=== PATIENT | male | born 1940 | race Caucasian/White ===

== ENCOUNTER 2016-03-21 16:50 | Inpatient (IN) | payer MEDICARE, OTHER ==
[~2016-03-21] VITALS: Ht 167.6 cm; Wt 53.2 kg
[2016-03-21] MEDS ORDERED: OPTIRAY 350 100 ML VIAL HMH IV ONE (16:51)
[2016-03-21] MEDS ORDERED: ED DILTIAZEM DRIP 125 ML IV ONE (18:18)
[2016-03-21] MEDS ORDERED: DILTIAZEM 50 MG/10 ML VIAL IV ONE (18:18)
[2016-03-21] MEDS ORDERED: SODIUM CHLORIDE 0.9% 1,000 ML ONE (18:19)
[2016-03-21] MEDS ORDERED: LORAZEPAM 2 MG/ML VIAL ONE (18:42)
[2016-03-21] MEDS ORDERED: DIPHENOXYLATE/ATROP TAB 2.5 MG TAB PO PRN (23:45)
[2016-03-22] VITALS (55 sets, daily range): BP systolic 94–140; RESP 14–29; TEMP 98.1–98.6; Ht 167.6 cm; Wt 53.2 kg
[2016-03-22] MEDS: LEVETIRACETAM IV SCH ×4 (01:23→18:13)
[2016-03-22] MEDS: SODIUM CHLORIDE 0.9% IV SCH ×4 (01:23→18:13)
[2016-03-22] MEDS ORDERED: DUONEB INH ONE (02:49)
[2016-03-22] MEDS: DUONEB INH SCH ×5 (02:52→22:40)
[2016-03-22] MEDS: CARDIZEM 1 MG/ML DRIP 125 ML IV SCH (04:11)
[2016-03-22] MEDS: PANTOPRAZOLE 40 MG TAB PO SCH (06:43)
[2016-03-22] MEDS ORDERED: ERGOCALCIFEROL 50,000 UNITS (1.25 MG) CAP PO SCH (09:00)
[2016-03-22] MEDS: LACTOBACILLUS ACIDOPH CAP PO SCH ×2 (09:12→22:33)
[2016-03-22] MEDS: ASPIRIN 81 MG CHEW TAB PO SCH (09:12)
[2016-03-22] MEDS: COLESTIPOL HCL 1 GM TAB PO SCH (09:12)
[2016-03-22] MEDS: LISINOPRIL 5 MG TAB PO SCH (09:13)
[2016-03-22] MEDS: Carvedilol 3.125 MG TAB PO SCH ×2 (09:13→22:33)
[2016-03-22] MEDS: FLUOXETINE 20 MG CAP PO SCH (09:13)
[2016-03-22] MEDS: MONTELUKAST 10 MG TAB PO SCH (22:33)
[2016-03-23] MEDS: LEVETIRACETAM IV SCH ×3 (00:05→12:36)
[2016-03-23] MEDS: SODIUM CHLORIDE 0.9% IV SCH ×3 (00:05→12:36)
[2016-03-23 03:14] VITALS: BP_SYST 138; RESP 18; TEMP 98.8
[2016-03-23] MEDS: PANTOPRAZOLE 40 MG TAB PO SCH (05:55)
[2016-03-23] MEDS ORDERED: SALINE FLUSH 10 ML FLUSH PRN (06:40)
[2016-03-23] MEDS: SODIUM CHLORIDE 0.9% FLUSH BAG 500 ML IV SCH (06:42)
[2016-03-23 07:27] VITALS: BP_SYST 122; RESP 20; TEMP 98.9
[2016-03-23] MEDS: DUONEB INH SCH ×4 (07:30→22:54)
[2016-03-23] MEDS: LACTOBACILLUS ACIDOPH CAP PO SCH ×2 (09:52→21:56)
[2016-03-23] MEDS: COLESTIPOL HCL 1 GM TAB PO SCH (09:52)
[2016-03-23] MEDS: FLUOXETINE 20 MG CAP PO SCH (09:52)
[2016-03-23] MEDS: LISINOPRIL 5 MG TAB PO SCH (09:52)
[2016-03-23] MEDS: ASPIRIN 81 MG CHEW TAB PO SCH (09:52)
[2016-03-23] MEDS: Carvedilol 3.125 MG TAB PO SCH ×2 (09:52→21:56)
[2016-03-23] MEDS: SALINE FLUSH 10 ML FLUSH SCH ×2 (09:53→21:56)
[2016-03-23 11:05] VITALS: BP_SYST 160; RESP 18; TEMP 97.5
[2016-03-23 15:07] VITALS: BP_SYST 162; RESP 18; TEMP 97.9
[2016-03-23 19:31] VITALS: BP_SYST 154; RESP 16; TEMP 98.2
[2016-03-23] MEDS: LEVETIRACETAM 250 MG TAB PO SCH (21:56)
[2016-03-23] MEDS: MONTELUKAST 10 MG TAB PO SCH (21:56)
[2016-03-23 23:26] VITALS: BP_SYST 137; RESP 18; TEMP 99
[2016-03-24] VITALS (26 sets, daily range): BP systolic 83–146; RESP 14–29; TEMP 98.2–99
[2016-03-24] MEDS: PANTOPRAZOLE 40 MG TAB PO SCH (05:53)
[2016-03-24] MEDS: DUONEB INH SCH ×4 (06:32→22:05)
[2016-03-24] MEDS: LACTOBACILLUS ACIDOPH CAP PO SCH ×2 (08:47→20:57)
[2016-03-24] MEDS: LEVETIRACETAM 250 MG TAB PO SCH (08:47)
[2016-03-24] MEDS: FLUOXETINE 20 MG CAP PO SCH (08:47)
[2016-03-24] MEDS: SALINE FLUSH 10 ML FLUSH SCH ×2 (08:48→20:56)
[2016-03-24] MEDS: Carvedilol 3.125 MG TAB PO SCH ×2 (08:48→20:57)
[2016-03-24] MEDS: ASPIRIN 81 MG CHEW TAB PO SCH (08:48)
[2016-03-24] MEDS: LISINOPRIL 5 MG TAB PO SCH (08:48)
[2016-03-24] MEDS: COLESTIPOL HCL 1 GM TAB PO SCH (08:48)
[2016-03-24] MEDS ORDERED: LEVETIRACETAM 250 MG TAB PO ONE (10:45)
[2016-03-24] MEDS: LEVETIRACETAM INJ 500 MG in SODIUM CHLORIDE 0.9% 100 ML IV SCH ×2 (16:58→22:23)
[2016-03-24] MEDS: SODIUM CHLORIDE IV SCH (19:22)
[2016-03-24] MEDS: FOSPHENYTOIN PE IV SCH (19:22)
[2016-03-24] MEDS: MONTELUKAST 10 MG TAB PO SCH (20:57)
[2016-03-24] MEDS ORDERED: LEVETIRACETAM 500 MG TAB PO SCH (21:00)
[2016-03-24] MEDS ORDERED: SUCCINYLCHOLINE 20 MG/ML VL ONE (23:10)
[2016-03-24] MEDS ORDERED: ETOMIDATE 2 MG/ML VIAL IV ONE (23:10)
[2016-03-24] MEDS ORDERED: LACT RINGERS 1,000 ML IV ONE (23:25)
[2016-03-24] MEDS ORDERED: PHARMACY TO DOSE VANCOMYCIN IV SCH (23:30)
[2016-03-24] MEDS ORDERED: PHARMACY TO DOSE ZOSYN IV SCH (23:30)
[2016-03-24] MEDS: NEB-BROVANA 15 MCG/2 ML INH SCH (23:35)
[2016-03-24] MEDS: NEB-BUDESONIDE 0.5 MG INH SCH (23:35)
[2016-03-25] VITALS (59 sets, daily range): BP systolic 62–131; RESP 12–22; TEMP 97.7–98
[2016-03-25] MEDS ORDERED: VANCOMYCIN 750 MG in SODIUM CHLORIDE 0.9% 250 ML IV SCH
[2016-03-25] MEDS: CHLORHEXIDINE 0.12% ORAL CARE FOR VENT PATIENTS 15 ML SWAB SCH ×3 (00:46→23:55)
[2016-03-25] MEDS: PIPERACIL/TAZO 3.375GM/50ML 50 ML IV SCH ×5 (00:46→23:54)
[2016-03-25] MEDS: SODIUM CHLORIDE IV SCH ×4 (02:32→19:52)
[2016-03-25] MEDS: FOSPHENYTOIN PE IV SCH ×4 (02:32→19:52)
[2016-03-25] MEDS: PROPOFOL 100 ML 100 ML IV PRN ×2 (02:33→16:56)
[2016-03-25] MEDS: NOREPINEPHRINE 16 MG in DEXTROSE 5% 234 ML IV SCH (02:34)
[2016-03-25] MEDS: LEVETIRACETAM INJ 500 MG in SODIUM CHLORIDE 0.9% 100 ML IV SCH ×4 (05:19→21:36)
[2016-03-25] MEDS: SODIUM CHLORIDE 0.9% FLUSH BAG 500 ML IV SCH (05:21)
[2016-03-25] MEDS: NEB-BUDESONIDE 0.5 MG INH SCH ×2 (07:26→18:27)
[2016-03-25] MEDS: DUONEB INH SCH ×4 (07:26→22:36)
[2016-03-25] MEDS: NEB-BROVANA 15 MCG/2 ML INH SCH ×2 (07:26→18:27)
[2016-03-25] MEDS: COLESTIPOL HCL 1 GM TAB PO SCH (07:42)
[2016-03-25] MEDS ORDERED: POTASSIUM PHOSPHATE 30 MMOL in SODIUM CHLORIDE 0.9% 250 ML IV ONE (07:45)
[2016-03-25] MEDS ORDERED: *PATIENT RECEIVING TUBE FEEDS, ASSESS/ADJUST MEDICATIONS GTUBE SCH (07:45)
[2016-03-25] MEDS: POTASSIUM CHLORIDE PREMIX 50 ML IV SCH ×2 (07:58→09:01)
[2016-03-25] MEDS: SALINE FLUSH 10 ML FLUSH SCH ×2 (08:42→19:53)
[2016-03-25] MEDS: MAGNESIUM SULF 1 GM/100 ML 100 ML IV SCH ×4 (08:46→14:15)
[2016-03-25] MEDS ORDERED: ATROP GTUBE PRN (09:30)
[2016-03-25] MEDS ORDERED: DIPHENOXYLATE GTUBE PRN (09:30)
[2016-03-25] MEDS: LANSOPRAZOLE 30 MG SOLUTAB GTUBE SCH (11:17)
[2016-03-25] MEDS: LACTOBACILLUS ACIDOPH CAP GTUBE SCH ×2 (11:17→19:53)
[2016-03-25] MEDS: VANCOMYCIN 500 MG in SODIUM CHLORIDE 0.9% 100 ML IV SCH ×2 (12:00→23:54)
[2016-03-25] MEDS: MONTELUKAST 10 MG TAB GTUBE SCH (19:53)
[2016-03-25] MEDS ORDERED: [UNRECOGNIZED DRUG - REMARK] XX SCH (23:20)
[2016-03-26] VITALS (49 sets, daily range): BP systolic 91–152; RESP 14–28; TEMP 97.7–98.4
[2016-03-26] MEDS: ACYCLOVIR 500 MG in SODIUM CHLORIDE 0.9% 100 ML IV SCH ×3 (00:27→16:13)
[2016-03-26] MEDS: FOSPHENYTOIN PE IV SCH ×4 (00:28→20:09)
[2016-03-26] MEDS: SODIUM CHLORIDE IV SCH ×4 (00:28→20:09)
[2016-03-26] MEDS: LEVETIRACETAM INJ 500 MG in SODIUM CHLORIDE 0.9% 100 ML IV SCH ×4 (04:26→23:24)
[2016-03-26] MEDS ORDERED: SODIUM CHLORIDE 0.9% 1,000 ML IV SCH (04:30)
[2016-03-26] MEDS: PROPOFOL 100 ML 100 ML IV PRN ×2 (04:55→10:57)
[2016-03-26] MEDS: SODIUM CHLORIDE 0.9% FLUSH BAG 500 ML IV SCH ×3 (04:56→23:25)
[2016-03-26] MEDS: PIPERACIL/TAZO 3.375GM/50ML 50 ML IV SCH ×4 (05:00→23:15)
[2016-03-26] MEDS: NEB-BROVANA 15 MCG/2 ML INH SCH ×2 (06:23→18:18)
[2016-03-26] MEDS: NEB-BUDESONIDE 0.5 MG INH SCH ×2 (06:23→18:18)
[2016-03-26] MEDS: DUONEB INH SCH ×4 (06:23→23:09)
[2016-03-26] MEDS: LANSOPRAZOLE 30 MG SOLUTAB GTUBE SCH (06:47)
[2016-03-26] MEDS ORDERED: POTASSIUM CHLORIDE PREMIX 50 ML IV ONE (07:10)
[2016-03-26] MEDS: SALINE FLUSH 10 ML FLUSH SCH ×2 (09:28→20:10)
[2016-03-26] MEDS: LACTOBACILLUS ACIDOPH CAP GTUBE SCH ×2 (09:30→20:09)
[2016-03-26] MEDS ORDERED: MISSING DOSE XX ONE ×2 (09:40→23:05)
[2016-03-26] MEDS: COLESTIPOL HCL 5 GM PACKET GTUBE SCH (10:48)
[2016-03-26] MEDS: VANCOMYCIN 500 MG in SODIUM CHLORIDE 0.9% 100 ML IV SCH ×2 (12:44→23:11)
[2016-03-26] MEDS: CHLORHEXIDINE 0.12% ORAL CARE FOR VENT PATIENTS 15 ML SWAB SCH ×2 (12:45→23:15)
[2016-03-26] MEDS: NEB-NACL 3% 4 ML NEBU INH SCH ×3 (14:09→23:09)
[2016-03-26] MEDS: MONTELUKAST 10 MG TAB GTUBE SCH (20:09)
[2016-03-27] VITALS (48 sets, daily range): BP systolic 97–153; RESP 14–33; TEMP 97.7–97.9
[2016-03-27] MEDS: SODIUM CHLORIDE IV SCH ×4 (02:41→20:28)
[2016-03-27] MEDS: FOSPHENYTOIN PE IV SCH ×4 (02:41→20:28)
[2016-03-27] MEDS: NEB-BUDESONIDE 0.5 MG INH SCH ×2 (05:15→18:18)
[2016-03-27] MEDS: DUONEB INH SCH ×4 (05:15→22:16)
[2016-03-27] MEDS: NEB-NACL 3% 4 ML NEBU INH SCH ×4 (05:15→22:16)
[2016-03-27] MEDS: NEB-BROVANA 15 MCG/2 ML INH SCH ×2 (05:16→18:18)
[2016-03-27] MEDS: LEVETIRACETAM INJ 500 MG in SODIUM CHLORIDE 0.9% 100 ML IV SCH (05:23)
[2016-03-27] MEDS: LANSOPRAZOLE 30 MG SOLUTAB GTUBE SCH (06:10)
[2016-03-27] MEDS: PIPERACIL/TAZO 3.375GM/50ML 50 ML IV SCH (06:10)
[2016-03-27] MEDS: SODIUM CHLORIDE 0.9% FLUSH BAG 500 ML IV SCH (06:12)
[2016-03-27] MEDS: COLESTIPOL HCL 5 GM PACKET GTUBE SCH (08:06)
[2016-03-27] MEDS: LACTOBACILLUS ACIDOPH CAP GTUBE SCH ×2 (08:06→20:32)
[2016-03-27] MEDS: SALINE FLUSH 10 ML FLUSH SCH ×2 (08:07→20:32)
[2016-03-27] MEDS: PROPOFOL 100 ML 100 ML IV PRN ×2 (09:51→16:37)
[2016-03-27] MEDS ORDERED: FERUMOXYTOL 510 MG in SODIUM CHLORIDE 0.9% 50 ML IV ONE (09:55)
[2016-03-27] MEDS ORDERED: CYANOCOBALAMIN 1000 MCG/ML VIAL IM ONE (09:55)
[2016-03-27] MEDS ORDERED: DEXAMETHASONE IV ONE (10:05)
[2016-03-27] MEDS ORDERED: SODIUM CHLORIDE 0.9% IV ONE (10:05)
[2016-03-27] MEDS ORDERED: METRONIDAZOLE IV SCH (10:45)
[2016-03-27] MEDS ORDERED: SODIUM CHLORIDE 0.9% IV SCH (10:45)
[2016-03-27] MEDS ORDERED: MISSING DOSE XX ONE (11:00)
[2016-03-27] MEDS: METRONIDAZOLE 250 MG 500 MG in SODIUM CHLORIDE 0.9% 100 ML IV SCH ×2 (11:06→16:37)
[2016-03-27] MEDS: NOREPINEPHRINE 16 MG in DEXTROSE 5% 234 ML IV SCH (11:07)
[2016-03-27] MEDS ORDERED: METRONIDAZOLE 250 MG 250 MG in SODIUM CHLORIDE 0.9% 50 ML IV SCH (12:00)
[2016-03-27] MEDS: VALPROATE IV SCH ×2 (12:11→18:08)
[2016-03-27] MEDS: SODIUM CHLORIDE 0.9% IV SCH ×2 (12:11→18:08)
[2016-03-27] MEDS ORDERED: CALCIUM GLUCONATE 2,000 MG in SODIUM CHLORIDE 0.9% 100 ML IV ONE (12:20)
[2016-03-27] MEDS: CHLORHEXIDINE 0.12% ORAL CARE FOR VENT PATIENTS 15 ML SWAB SCH (13:42)
[2016-03-27] MEDS: VANCOMYCIN 750 MG in SODIUM CHLORIDE 0.9% 250 ML IV SCH (14:39)
[2016-03-27] MEDS: DEXAMETHASONE 4 MG/ML VIAL IV SCH (16:36)
[2016-03-27] MEDS: CEFTRIAXONE 1 GM in SODIUM CHLORIDE 0.9% 50 ML IV SCH (20:29)
[2016-03-27] MEDS: MONTELUKAST 10 MG TAB GTUBE SCH (20:32)
[2016-03-28] VITALS (36 sets, daily range): BP systolic 109–140; RESP 20–32; TEMP 97.8–98
[2016-03-28] MEDS: DEXAMETHASONE 4 MG/ML VIAL IV SCH ×3 (00:46→16:23)
[2016-03-28] MEDS: CHLORHEXIDINE 0.12% ORAL CARE FOR VENT PATIENTS 15 ML SWAB SCH ×2 (00:47→11:54)
[2016-03-28] MEDS: METRONIDAZOLE 250 MG 500 MG in SODIUM CHLORIDE 0.9% 100 ML IV SCH ×3 (00:47→16:23)
[2016-03-28] MEDS: VALPROATE IV SCH ×4 (00:47→18:11)
[2016-03-28] MEDS: SODIUM CHLORIDE 0.9% IV SCH ×4 (00:47→18:11)
[2016-03-28] MEDS: SODIUM CHLORIDE IV SCH ×4 (01:00→20:36)
[2016-03-28] MEDS: FOSPHENYTOIN PE IV SCH ×4 (01:00→20:36)
[2016-03-28] MEDS: VANCOMYCIN 750 MG in SODIUM CHLORIDE 0.9% 250 ML IV SCH ×2 (01:02→15:11)
[2016-03-28] MEDS: PROPOFOL 100 ML 100 ML IV PRN ×3 (01:03→17:07)
[2016-03-28] MEDS: SODIUM CHLORIDE 0.9% FLUSH BAG 500 ML IV SCH ×2 (05:59→06:00)
[2016-03-28] MEDS: LANSOPRAZOLE 30 MG SOLUTAB GTUBE SCH (06:11)
[2016-03-28] MEDS: NEB-NACL 3% 4 ML NEBU INH SCH ×4 (06:34→22:04)
[2016-03-28] MEDS: NEB-BROVANA 15 MCG/2 ML INH SCH ×2 (06:34→18:28)
[2016-03-28] MEDS: DUONEB INH SCH ×4 (06:34→22:05)
[2016-03-28] MEDS: NEB-BUDESONIDE 0.5 MG INH SCH ×2 (06:34→18:28)
[2016-03-28] MEDS: VANCOMYCIN 500 MG in SODIUM CHLORIDE 0.9% 100 ML IV SCH (07:21)
[2016-03-28] MEDS: SALINE FLUSH 10 ML FLUSH SCH ×2 (07:54→20:36)
[2016-03-28] MEDS: CEFTRIAXONE 1 GM in SODIUM CHLORIDE 0.9% 50 ML IV SCH (08:21)
[2016-03-28] MEDS: COLESTIPOL HCL 5 GM PACKET GTUBE SCH ×2 (08:21→08:59)
[2016-03-28] MEDS: LACTOBACILLUS ACIDOPH CAP GTUBE SCH ×2 (08:21→20:37)
[2016-03-28] MEDS: MAGNESIUM SULF 1 GM/100 ML 100 ML IV SCH ×4 (09:52→14:05)
[2016-03-28] MEDS: MONTELUKAST 10 MG TAB GTUBE SCH (20:37)
[2016-03-28] MEDS: CEFTRIAXONE 2 GM in SODIUM CHLORIDE 0.9% 50 ML IV SCH (20:37)
[2016-03-29] VITALS (36 sets, daily range): BP systolic 107–162; RESP 23–39; TEMP 98.8–100
[2016-03-29] MEDS: SODIUM CHLORIDE 0.9% IV SCH ×5 (00:51→23:14)
[2016-03-29] MEDS: VALPROATE IV SCH ×5 (00:51→23:14)
[2016-03-29] MEDS: METRONIDAZOLE 250 MG 500 MG in SODIUM CHLORIDE 0.9% 100 ML IV SCH ×4 (00:52→23:14)
[2016-03-29] MEDS: DEXAMETHASONE 4 MG/ML VIAL IV SCH ×4 (00:54→23:17)
[2016-03-29] MEDS: FOSPHENYTOIN PE IV SCH ×4 (00:54→20:46)
[2016-03-29] MEDS: SODIUM CHLORIDE IV SCH ×4 (00:54→20:46)
[2016-03-29] MEDS: CHLORHEXIDINE 0.12% ORAL CARE FOR VENT PATIENTS 15 ML SWAB SCH ×3 (00:58→23:15)
[2016-03-29] MEDS: VANCOMYCIN 750 MG in SODIUM CHLORIDE 0.9% 250 ML IV SCH ×2 (01:03→13:29)
[2016-03-29] MEDS: NEB-BUDESONIDE 0.5 MG INH SCH ×2 (06:19→18:14)
[2016-03-29] MEDS: NEB-BROVANA 15 MCG/2 ML INH SCH ×2 (06:19→18:14)
[2016-03-29] MEDS: DUONEB INH SCH ×4 (06:19→22:04)
[2016-03-29] MEDS: NEB-NACL 3% 4 ML NEBU INH SCH ×4 (06:20→22:04)
[2016-03-29] MEDS: SODIUM CHLORIDE 0.9% FLUSH BAG 500 ML IV SCH ×2 (06:36→06:37)
[2016-03-29] MEDS: LANSOPRAZOLE 30 MG SOLUTAB GTUBE SCH (06:36)
[2016-03-29] MEDS: PROPOFOL 100 ML 100 ML IV PRN ×2 (06:44→11:48)
[2016-03-29] MEDS: SALINE FLUSH 10 ML FLUSH SCH ×2 (08:02→20:47)
[2016-03-29] MEDS: LACTOBACILLUS ACIDOPH CAP GTUBE SCH ×2 (08:03→20:47)
[2016-03-29] MEDS: COLESTIPOL HCL 5 GM PACKET GTUBE SCH (08:03)
[2016-03-29] MEDS: CEFTRIAXONE 2 GM in SODIUM CHLORIDE 0.9% 50 ML IV SCH ×2 (08:03→20:46)
[2016-03-29] MEDS: VANCOMYCIN SUSP 250 MG/5 ML UDC PO SCH ×2 (17:54→20:47)
[2016-03-29] MEDS: MONTELUKAST 10 MG TAB GTUBE SCH (20:47)
[2016-03-30] VITALS (36 sets, daily range): BP systolic 110–139; RESP 18–31; TEMP 98.6–99.5
[2016-03-30] MEDS: SODIUM CHLORIDE IV SCH ×4 (01:30→20:35)
[2016-03-30] MEDS: FOSPHENYTOIN PE IV SCH ×4 (01:30→20:35)
[2016-03-30] MEDS: VANCOMYCIN 1,250 MG in SODIUM CHLORIDE 0.9% 250 ML IV SCH (05:57)
[2016-03-30] MEDS: DUONEB INH SCH ×4 (06:10→22:51)
[2016-03-30] MEDS: NEB-NACL 3% 4 ML NEBU INH SCH ×4 (06:10→22:51)
[2016-03-30] MEDS: NEB-BROVANA 15 MCG/2 ML INH SCH ×2 (06:10→18:19)
[2016-03-30] MEDS: NEB-BUDESONIDE 0.5 MG INH SCH ×2 (06:10→18:19)
[2016-03-30] MEDS: SODIUM CHLORIDE 0.9% FLUSH BAG 500 ML IV SCH ×2 (06:41→06:42)
[2016-03-30] MEDS: SODIUM CHLORIDE 0.9% IV SCH ×3 (06:50→17:03)
[2016-03-30] MEDS: VALPROATE IV SCH ×3 (06:50→17:03)
[2016-03-30] MEDS: SALINE FLUSH 10 ML FLUSH SCH ×2 (07:26→20:35)
[2016-03-30] MEDS: DEXAMETHASONE 4 MG/ML VIAL IV SCH ×2 (07:26→17:02)
[2016-03-30] MEDS: METRONIDAZOLE 250 MG 500 MG in SODIUM CHLORIDE 0.9% 100 ML IV SCH ×2 (07:27→17:03)
[2016-03-30] MEDS: CEFTRIAXONE 2 GM in SODIUM CHLORIDE 0.9% 50 ML IV SCH ×2 (07:27→20:35)
[2016-03-30] MEDS: LACTOBACILLUS ACIDOPH CAP GTUBE SCH ×2 (07:27→20:35)
[2016-03-30] MEDS: VANCOMYCIN SUSP 250 MG/5 ML UDC PO SCH ×4 (07:27→20:35)
[2016-03-30] MEDS: MAGNESIUM SULF 1 GM/100 ML 100 ML IV SCH ×2 (07:46→08:51)
[2016-03-30] MEDS: PROPOFOL 100 ML 100 ML IV PRN (07:46)
[2016-03-30] MEDS ORDERED: ASPIRIN 81 MG CHEW TAB PO SCH (09:30)
[2016-03-30] MEDS: CHLORHEXIDINE 0.12% ORAL CARE FOR VENT PATIENTS 15 ML SWAB SCH (12:09)
[2016-03-30] MEDS: CYANOCOBALAMIN 1000 MCG/ML VIAL IM SCH (17:02)
[2016-03-30] MEDS: MONTELUKAST 10 MG TAB GTUBE SCH (20:35)
[2016-03-30] MEDS ORDERED: MISSING DOSE XX ONE (23:00)
[2016-03-31] VITALS (36 sets, daily range): BP systolic 113–158; RESP 21–37; TEMP 97.7–99.3
[2016-03-31] MEDS: DEXAMETHASONE 4 MG/ML VIAL IV SCH ×3 (00:12→16:45)
[2016-03-31] MEDS: CHLORHEXIDINE 0.12% ORAL CARE FOR VENT PATIENTS 15 ML SWAB SCH ×2 (00:13→11:37)
[2016-03-31] MEDS: VALPROATE IV SCH ×4 (00:13→18:12)
[2016-03-31] MEDS: SODIUM CHLORIDE 0.9% IV SCH ×4 (00:13→18:12)
[2016-03-31] MEDS: METRONIDAZOLE 250 MG 500 MG in SODIUM CHLORIDE 0.9% 100 ML IV SCH ×3 (00:13→16:44)
[2016-03-31] MEDS: CARDIZEM 1 MG/ML DRIP 125 ML IV SCH (00:14)
[2016-03-31] MEDS: FOSPHENYTOIN PE IV SCH ×4 (01:04→19:49)
[2016-03-31] MEDS: SODIUM CHLORIDE IV SCH ×4 (01:04→19:49)
[2016-03-31] MEDS: VANCOMYCIN 1,250 MG in SODIUM CHLORIDE 0.9% 250 ML IV SCH (05:28)
[2016-03-31] MEDS: SODIUM CHLORIDE 0.9% FLUSH BAG 500 ML IV SCH ×2 (05:30)
[2016-03-31] MEDS: NEB-BUDESONIDE 0.5 MG INH SCH ×2 (06:15→18:22)
[2016-03-31] MEDS: DUONEB INH SCH ×4 (06:15→22:02)
[2016-03-31] MEDS: NEB-NACL 3% 4 ML NEBU INH SCH ×4 (06:15→22:02)
[2016-03-31] MEDS: NEB-BROVANA 15 MCG/2 ML INH SCH ×2 (06:15→18:22)
[2016-03-31] MEDS: SALINE FLUSH 10 ML FLUSH SCH ×2 (07:36→19:49)
[2016-03-31] MEDS: CEFTRIAXONE 2 GM in SODIUM CHLORIDE 0.9% 50 ML IV SCH ×2 (08:52→19:50)
[2016-03-31] MEDS: CYANOCOBALAMIN 1000 MCG/ML VIAL IM SCH (08:53)
[2016-03-31] MEDS: LACTOBACILLUS ACIDOPH CAP GTUBE SCH ×2 (08:53→19:50)
[2016-03-31] MEDS: VANCOMYCIN SUSP 250 MG/5 ML UDC NG SCH ×4 (08:53→19:51)
[2016-03-31] MEDS: ASPIRIN 81 MG CHEW TAB NG SCH (08:53)
[2016-03-31] MEDS: FAMOTIDINE 20 MG INJ IV SCH ×2 (10:43→19:50)
[2016-03-31] MEDS ORDERED: MISSING DOSE XX ONE (12:15)
[2016-03-31] MEDS: ARTIFICIAL TEARS OINT EYE EACH SCH ×3 (13:46→19:51)
[2016-03-31] MEDS: MONTELUKAST 10 MG TAB GTUBE SCH (19:50)
[2016-04-01] VITALS (56 sets, daily range): BP systolic 96–148; RESP 18–31; TEMP 97.1–98.1
[2016-04-01] MEDS: SODIUM CHLORIDE 0.9% IV SCH ×4 (00:44→18:14)
[2016-04-01] MEDS: METRONIDAZOLE 250 MG 500 MG in SODIUM CHLORIDE 0.9% 100 ML IV SCH ×3 (00:44→15:56)
[2016-04-01] MEDS: DEXAMETHASONE 4 MG/ML VIAL IV SCH ×3 (00:44→15:55)
[2016-04-01] MEDS: CHLORHEXIDINE 0.12% ORAL CARE FOR VENT PATIENTS 15 ML SWAB SCH ×2 (00:44→12:33)
[2016-04-01] MEDS: VALPROATE IV SCH ×4 (00:44→18:14)
[2016-04-01] MEDS: FOSPHENYTOIN PE IV SCH ×4 (01:04→20:18)
[2016-04-01] MEDS: SODIUM CHLORIDE IV SCH ×4 (01:04→20:18)
[2016-04-01] MEDS: VANCOMYCIN 1,250 MG in SODIUM CHLORIDE 0.9% 250 ML IV SCH (05:15)
[2016-04-01] MEDS: SODIUM CHLORIDE 0.9% FLUSH BAG 500 ML IV SCH ×2 (05:16)
[2016-04-01] MEDS: NEB-BROVANA 15 MCG/2 ML INH SCH ×2 (06:22→18:54)
[2016-04-01] MEDS: NEB-BUDESONIDE 0.5 MG INH SCH ×2 (06:22→18:54)
[2016-04-01] MEDS: NEB-NACL 3% 4 ML NEBU INH SCH ×4 (06:22→22:14)
[2016-04-01] MEDS: DUONEB INH SCH ×4 (06:22→22:14)
[2016-04-01] MEDS: SALINE FLUSH 10 ML FLUSH SCH ×2 (07:37→20:18)
[2016-04-01] MEDS: ARTIFICIAL TEARS OINT EYE EACH SCH ×4 (08:21→20:19)
[2016-04-01] MEDS: LACTOBACILLUS ACIDOPH CAP GTUBE SCH ×2 (08:21→20:18)
[2016-04-01] MEDS: ASPIRIN 81 MG CHEW TAB NG SCH (08:21)
[2016-04-01] MEDS: VANCOMYCIN SUSP 250 MG/5 ML UDC NG SCH ×4 (08:21→20:18)
[2016-04-01] MEDS: CEFTRIAXONE 2 GM in SODIUM CHLORIDE 0.9% 50 ML IV SCH ×2 (08:22→20:18)
[2016-04-01] MEDS: CYANOCOBALAMIN 1000 MCG/ML VIAL IM SCH (08:23)
[2016-04-01] MEDS: MAGNESIUM SULF 1 GM/100 ML 100 ML IV SCH ×2 (08:23→09:39)
[2016-04-01] MEDS: FAMOTIDINE 20 MG INJ IV SCH ×2 (08:23→20:19)
[2016-04-01] MEDS: PROPOFOL 100 ML 100 ML IV PRN (16:05)
[2016-04-01] MEDS: MONTELUKAST 10 MG TAB GTUBE SCH (20:18)
[2016-04-02] VITALS (47 sets, daily range): BP systolic 95–149; RESP 17–33; TEMP 97.1–98.1
[2016-04-02] MEDS: METRONIDAZOLE 250 MG 500 MG in SODIUM CHLORIDE 0.9% 100 ML IV SCH ×3 (00:43→16:42)
[2016-04-02] MEDS: SODIUM CHLORIDE 0.9% IV SCH ×4 (00:43→18:44)
[2016-04-02] MEDS: DEXAMETHASONE 4 MG/ML VIAL IV SCH ×3 (00:43→21:32)
[2016-04-02] MEDS: VALPROATE IV SCH ×4 (00:43→18:44)
[2016-04-02] MEDS: CHLORHEXIDINE 0.12% ORAL CARE FOR VENT PATIENTS 15 ML SWAB SCH ×2 (00:44→12:25)
[2016-04-02] MEDS: SODIUM CHLORIDE IV SCH ×4 (01:38→20:35)
[2016-04-02] MEDS: FOSPHENYTOIN PE IV SCH ×4 (01:38→20:35)
[2016-04-02] MEDS: DUONEB INH SCH ×5 (02:50→23:12)
[2016-04-02] MEDS: VANCOMYCIN 1,250 MG in SODIUM CHLORIDE 0.9% 250 ML IV SCH (05:56)
[2016-04-02] MEDS: SODIUM CHLORIDE 0.9% FLUSH BAG 500 ML IV SCH ×3 (05:58)
[2016-04-02] MEDS: NEB-NACL 3% 4 ML NEBU INH SCH ×4 (06:27→23:12)
[2016-04-02] MEDS: NEB-BROVANA 15 MCG/2 ML INH SCH ×2 (06:28→19:25)
[2016-04-02] MEDS: NEB-BUDESONIDE 0.5 MG INH SCH ×2 (06:28→19:25)
[2016-04-02] MEDS: SALINE FLUSH 10 ML FLUSH SCH ×2 (08:02→20:36)
[2016-04-02] MEDS: ARTIFICIAL TEARS OINT EYE EACH SCH ×4 (08:02→21:32)
[2016-04-02] MEDS: FAMOTIDINE 20 MG INJ IV SCH ×2 (09:07→20:35)
[2016-04-02] MEDS: VANCOMYCIN SUSP 250 MG/5 ML UDC NG SCH ×4 (09:26→21:31)
[2016-04-02] MEDS: LACTOBACILLUS ACIDOPH CAP GTUBE SCH ×2 (09:26→21:31)
[2016-04-02] MEDS: ASPIRIN 81 MG CHEW TAB NG SCH (09:26)
[2016-04-02] MEDS: CYANOCOBALAMIN 1000 MCG/ML VIAL IM SCH (10:18)
[2016-04-02] MEDS: PROPOFOL 100 ML 100 ML IV PRN ×2 (13:15→20:36)
[2016-04-02] MEDS: MONTELUKAST 10 MG TAB GTUBE SCH (21:31)
[2016-04-03] VITALS (47 sets, daily range): BP systolic 90–128; RESP 17–30; TEMP 97.3–99.4
[2016-04-03] MEDS: METRONIDAZOLE 250 MG 500 MG in SODIUM CHLORIDE 0.9% 100 ML IV SCH ×3 (01:22→16:22)
[2016-04-03] MEDS: SODIUM CHLORIDE IV SCH ×4 (01:24→20:26)
[2016-04-03] MEDS: FOSPHENYTOIN PE IV SCH ×4 (01:24→20:26)
[2016-04-03] MEDS: VALPROATE IV SCH ×5 (01:24→23:11)
[2016-04-03] MEDS: SODIUM CHLORIDE 0.9% IV SCH ×5 (01:24→23:11)
[2016-04-03] MEDS: VANCOMYCIN 1,500 MG in SODIUM CHLORIDE 0.9% 250 ML IV SCH (05:00)
[2016-04-03] MEDS: SODIUM CHLORIDE 0.9% FLUSH BAG 500 ML IV SCH ×3 (05:48→06:13)
[2016-04-03] MEDS: NEB-BROVANA 15 MCG/2 ML INH SCH ×2 (06:48→16:57)
[2016-04-03] MEDS: NEB-NACL 3% 4 ML NEBU INH SCH ×4 (06:49→22:02)
[2016-04-03] MEDS: DUONEB INH SCH ×4 (06:49→22:02)
[2016-04-03] MEDS: NEB-BUDESONIDE 0.5 MG INH SCH ×2 (06:49→16:57)
[2016-04-03] MEDS: FAMOTIDINE 20 MG INJ IV SCH ×2 (08:20→20:26)
[2016-04-03] MEDS ORDERED: MISSING DOSE XX ONE (08:20)
[2016-04-03] MEDS: SALINE FLUSH 10 ML FLUSH SCH ×2 (08:20→20:27)
[2016-04-03] MEDS: ASPIRIN 81 MG CHEW TAB NG SCH (08:21)
[2016-04-03] MEDS: LACTOBACILLUS ACIDOPH CAP GTUBE SCH ×2 (08:21→20:26)
[2016-04-03] MEDS: DEXAMETHASONE 4 MG/ML VIAL IV SCH ×2 (08:21→20:26)
[2016-04-03] MEDS: ARTIFICIAL TEARS OINT EYE EACH SCH ×4 (08:21→20:27)
[2016-04-03] MEDS: VANCOMYCIN SUSP 250 MG/5 ML UDC NG SCH (08:24)
[2016-04-03] MEDS: VANCOMYCIN SUSP 250 MG/5 ML UDC GTUBE SCH ×4 (08:50→20:28)
[2016-04-03] MEDS: PROPOFOL 100 ML 100 ML IV PRN ×2 (09:50→21:27)
[2016-04-03] MEDS ORDERED: LACOSAMIDE 100 MG in SODIUM CHLORIDE 0.9% 50 ML IV SCH (11:00)
[2016-04-03] MEDS: LACOSAMIDE 100 MG in SODIUM CHLORIDE 0.9% 50 ML IV SCH ×2 (11:41→17:17)
[2016-04-03] MEDS: CHLORHEXIDINE 0.12% ORAL CARE FOR VENT PATIENTS 15 ML SWAB SCH ×2 (12:37)
[2016-04-03] MEDS: MONTELUKAST 10 MG TAB GTUBE SCH (20:26)
[2016-04-03] MEDS ORDERED: LORAZEPAM 2 MG/ML VIAL IV ONE (21:05)
[2016-04-04] VITALS (42 sets, daily range): BP systolic 87–141; RESP 14–33; TEMP 96.3–98.9
[2016-04-04] MEDS: LACOSAMIDE 100 MG in SODIUM CHLORIDE 0.9% 50 ML IV SCH ×4 (00:13→17:10)
[2016-04-04] MEDS: CHLORHEXIDINE 0.12% ORAL CARE FOR VENT PATIENTS 15 ML SWAB SCH ×2 (01:11→11:35)
[2016-04-04] MEDS: METRONIDAZOLE 250 MG 500 MG in SODIUM CHLORIDE 0.9% 100 ML IV SCH ×3 (01:11→15:57)
[2016-04-04] MEDS: SODIUM CHLORIDE IV SCH ×4 (02:38→20:11)
[2016-04-04] MEDS: FOSPHENYTOIN PE IV SCH ×4 (02:38→20:11)
[2016-04-04] MEDS: VANCOMYCIN 1,500 MG in SODIUM CHLORIDE 0.9% 250 ML IV SCH (04:43)
[2016-04-04] MEDS: SODIUM CHLORIDE 0.9% FLUSH BAG 500 ML IV SCH ×3 (06:00→06:05)
[2016-04-04] MEDS: PROPOFOL 100 ML 100 ML IV PRN ×2 (06:07→17:12)
[2016-04-04] MEDS: SODIUM CHLORIDE 0.9% IV SCH ×3 (06:57→18:12)
[2016-04-04] MEDS: VALPROATE IV SCH ×3 (06:57→18:12)
[2016-04-04] MEDS: NEB-BROVANA 15 MCG/2 ML INH SCH ×2 (07:01→18:15)
[2016-04-04] MEDS: NEB-BUDESONIDE 0.5 MG INH SCH ×2 (07:01→18:15)
[2016-04-04] MEDS: DUONEB INH SCH ×4 (07:01→23:34)
[2016-04-04] MEDS: NEB-NACL 3% 4 ML NEBU INH SCH ×4 (07:01→23:34)
[2016-04-04] MEDS: SALINE FLUSH 10 ML FLUSH SCH ×2 (08:02→20:11)
[2016-04-04] MEDS: ARTIFICIAL TEARS OINT EYE EACH SCH ×4 (08:03→20:12)
[2016-04-04] MEDS ORDERED: MISSING DOSE XX ONE ×3 (09:15→22:25)
[2016-04-04] MEDS: FAMOTIDINE 20 MG INJ IV SCH ×2 (09:21→20:11)
[2016-04-04] MEDS: ASPIRIN 81 MG CHEW TAB NG SCH (09:21)
[2016-04-04] MEDS: VANCOMYCIN SUSP 250 MG/5 ML UDC GTUBE SCH ×4 (09:21→20:12)
[2016-04-04] MEDS: DEXAMETHASONE 4 MG/ML VIAL IV SCH ×2 (09:22→20:13)
[2016-04-04] MEDS: LACTOBACILLUS ACIDOPH CAP GTUBE SCH ×2 (09:41→20:12)
[2016-04-04] MEDS: MONTELUKAST 10 MG TAB GTUBE SCH (20:12)
[2016-04-04] MEDS: LACOSAMIDE 50 MG TABLET NG SCH (20:13)
[2016-04-04] MEDS: MICONAZOLE 2% PWD TOPICAL SCH (20:14)
[2016-04-04] MEDS: CHOLESTYRAMINE LIGHT 4 GM PKT NG SCH ×2 (20:16→22:00)
[2016-04-05] VITALS (33 sets, daily range): BP systolic 97–153; RESP 17–31; TEMP 98.3–99.3
[2016-04-05] MEDS: SODIUM CHLORIDE 0.9% IV SCH ×4 (00:24→19:01)
[2016-04-05] MEDS: VALPROATE IV SCH ×4 (00:24→19:01)
[2016-04-05] MEDS: CHLORHEXIDINE 0.12% ORAL CARE FOR VENT PATIENTS 15 ML SWAB SCH ×2 (00:25→12:21)
[2016-04-05] MEDS: METRONIDAZOLE 250 MG 500 MG in SODIUM CHLORIDE 0.9% 100 ML IV SCH ×3 (00:25→16:55)
[2016-04-05] MEDS: FOSPHENYTOIN PE IV SCH ×4 (01:30→20:29)
[2016-04-05] MEDS: SODIUM CHLORIDE IV SCH ×4 (01:30→20:29)
[2016-04-05] MEDS: VANCOMYCIN 1,500 MG in SODIUM CHLORIDE 0.9% 250 ML IV SCH (05:50)
[2016-04-05] MEDS: SODIUM CHLORIDE 0.9% FLUSH BAG 500 ML IV SCH ×3 (05:51→05:52)
[2016-04-05] MEDS: NEB-BUDESONIDE 0.5 MG INH SCH ×2 (06:19→16:50)
[2016-04-05] MEDS: DUONEB INH SCH ×4 (06:19→22:35)
[2016-04-05] MEDS: NEB-NACL 3% 4 ML NEBU INH SCH ×4 (06:19→22:35)
[2016-04-05] MEDS: NEB-BROVANA 15 MCG/2 ML INH SCH ×2 (06:19→16:50)
[2016-04-05] MEDS: SALINE FLUSH 10 ML FLUSH SCH ×2 (09:15→20:30)
[2016-04-05] MEDS: FAMOTIDINE 20 MG INJ IV SCH ×2 (09:17→20:30)
[2016-04-05] MEDS: ASPIRIN 81 MG CHEW TAB NG SCH (09:19)
[2016-04-05] MEDS: ARTIFICIAL TEARS OINT EYE EACH SCH ×4 (09:19→20:31)
[2016-04-05] MEDS: LACTOBACILLUS ACIDOPH CAP GTUBE SCH ×2 (09:19→20:31)
[2016-04-05] MEDS: VANCOMYCIN SUSP 250 MG/5 ML UDC GTUBE SCH ×4 (09:19→20:31)
[2016-04-05] MEDS: LACOSAMIDE 50 MG TABLET NG SCH ×2 (09:20→20:31)
[2016-04-05] MEDS: MICONAZOLE 2% PWD TOPICAL SCH ×2 (09:20→20:32)
[2016-04-05] MEDS: DEXAMETHASONE 4 MG/ML VIAL IV SCH ×2 (09:21→20:31)
[2016-04-05] MEDS: CHOLESTYRAMINE LIGHT 4 GM PKT NG SCH ×2 (12:19→22:00)
[2016-04-05] MEDS: MONTELUKAST 10 MG TAB GTUBE SCH (20:31)
[2016-04-06] VITALS (28 sets, daily range): BP systolic 102–147; RESP 19–37; TEMP 97.3–98.7
[2016-04-06] MEDS: SODIUM CHLORIDE 0.9% IV SCH ×4 (00:59→18:39)
[2016-04-06] MEDS: VALPROATE IV SCH ×4 (00:59→18:39)
[2016-04-06] MEDS: METRONIDAZOLE 250 MG 500 MG in SODIUM CHLORIDE 0.9% 100 ML IV SCH ×3 (00:59→16:36)
[2016-04-06] MEDS: SODIUM CHLORIDE IV SCH ×4 (01:51→20:03)
[2016-04-06] MEDS: FOSPHENYTOIN PE IV SCH ×4 (01:51→20:03)
[2016-04-06] MEDS: VANCOMYCIN 1,500 MG in SODIUM CHLORIDE 0.9% 250 ML IV SCH (05:06)
[2016-04-06] MEDS: NEB-BROVANA 15 MCG/2 ML INH SCH ×2 (05:32→17:16)
[2016-04-06] MEDS: DUONEB INH SCH ×4 (05:32→22:29)
[2016-04-06] MEDS: NEB-NACL 3% 4 ML NEBU INH SCH ×4 (05:32→22:29)
[2016-04-06] MEDS: NEB-BUDESONIDE 0.5 MG INH SCH ×2 (05:32→17:15)
[2016-04-06] MEDS: SODIUM CHLORIDE 0.9% FLUSH BAG 500 ML IV SCH ×3 (06:00→06:49)
[2016-04-06] MEDS ORDERED: MISSING DOSE XX ONE (08:15)
[2016-04-06] MEDS: SALINE FLUSH 10 ML FLUSH SCH ×2 (08:36→20:05)
[2016-04-06] MEDS: FAMOTIDINE 20 MG INJ IV SCH ×2 (08:38→20:04)
[2016-04-06] MEDS: ARTIFICIAL TEARS OINT EYE EACH SCH ×4 (08:39→20:06)
[2016-04-06] MEDS: ASPIRIN 81 MG CHEW TAB NG SCH (08:40)
[2016-04-06] MEDS: VANCOMYCIN SUSP 250 MG/5 ML UDC GTUBE SCH ×4 (08:40→20:06)
[2016-04-06] MEDS: DEXAMETHASONE 4 MG/ML VIAL IV SCH (08:40)
[2016-04-06] MEDS: LACOSAMIDE 50 MG TABLET NG SCH ×2 (08:41→20:07)
[2016-04-06] MEDS: MICONAZOLE 2% PWD TOPICAL SCH ×2 (08:41→20:18)
[2016-04-06] MEDS: CHOLESTYRAMINE LIGHT 4 GM PKT NG SCH ×2 (08:41→20:19)
[2016-04-06] MEDS: LACTOBACILLUS ACIDOPH CAP GTUBE SCH ×2 (09:00→20:07)
[2016-04-06] MEDS: CHLORHEXIDINE 0.12% ORAL CARE FOR VENT PATIENTS 15 ML SWAB SCH ×2 (11:44)
[2016-04-06] MEDS: MONTELUKAST 10 MG TAB GTUBE SCH (20:07)
[2016-04-07] VITALS (25 sets, daily range): BP systolic 89–130; RESP 14–31; TEMP 97.2–98.2
[2016-04-07] MEDS: VALPROATE IV SCH ×4 (00:18→17:38)
[2016-04-07] MEDS: SODIUM CHLORIDE 0.9% IV SCH ×4 (00:18→17:38)
[2016-04-07] MEDS: METRONIDAZOLE 250 MG 500 MG in SODIUM CHLORIDE 0.9% 100 ML IV SCH ×2 (00:19→09:01)
[2016-04-07] MEDS: SODIUM CHLORIDE IV SCH ×4 (02:16→19:30)
[2016-04-07] MEDS: FOSPHENYTOIN PE IV SCH ×4 (02:16→19:30)
[2016-04-07] MEDS: DUONEB INH SCH ×4 (04:44→22:23)
[2016-04-07] MEDS: NEB-BROVANA 15 MCG/2 ML INH SCH ×2 (04:45→18:32)
[2016-04-07] MEDS: NEB-BUDESONIDE 0.5 MG INH SCH ×2 (04:45→18:32)
[2016-04-07] MEDS: NEB-NACL 3% 4 ML NEBU INH SCH ×4 (04:45→23:50)
[2016-04-07] MEDS: VANCOMYCIN 1,500 MG in SODIUM CHLORIDE 0.9% 250 ML IV SCH (05:31)
[2016-04-07] MEDS: SODIUM CHLORIDE 0.9% FLUSH BAG 500 ML IV SCH ×3 (05:34→05:51)
[2016-04-07] MEDS ORDERED: MISSING DOSE XX ONE ×3 (05:40→08:45)
[2016-04-07] MEDS: FAMOTIDINE 20 MG INJ IV SCH ×2 (08:58→20:00)
[2016-04-07] MEDS: SALINE FLUSH 10 ML FLUSH SCH ×2 (08:59→20:00)
[2016-04-07] MEDS: ARTIFICIAL TEARS OINT EYE EACH SCH ×4 (08:59→21:00)
[2016-04-07] MEDS: VANCOMYCIN SUSP 250 MG/5 ML UDC GTUBE SCH ×3 (09:00→12:20)
[2016-04-07] MEDS: MICONAZOLE 2% PWD TOPICAL SCH ×2 (09:02→21:00)
[2016-04-07] MEDS: MAGNESIUM SULF 1 GM/100 ML 100 ML IV SCH ×2 (10:48→12:02)
[2016-04-07] MEDS: SACCHA BOULARDII 250MG CAP PO SCH ×2 (12:02→21:00)
[2016-04-07] MEDS: ASPIRIN 81 MG CHEW TAB NG SCH (12:03)
[2016-04-07] MEDS: CHOLESTYRAMINE LIGHT 4 GM PKT NG SCH (12:05)
[2016-04-07] MEDS ORDERED: *TUBE FEEDS DISCONTINUED, ASSESS/ADJUST MEDICATIONS PO ONE (14:10)
[2016-04-07] MEDS ORDERED: ATROP PO PRN (14:25)
[2016-04-07] MEDS ORDERED: DIPHENOXYLATE PO PRN (14:25)
[2016-04-07] MEDS: VANCOMYCIN SUSP 250 MG/5 ML UDC PO SCH ×2 (16:46→21:00)
[2016-04-07] MEDS: LINEZOLID 600 MG/300 ML 300 ML IV SCH (20:00)
[2016-04-07] MEDS: LACOSAMIDE 200 MG TAB PO SCH (21:00)
[2016-04-07] MEDS: MONTELUKAST 10 MG TAB PO SCH (21:00)
[2016-04-07] MEDS: CHOLESTYRAMINE LIGHT 4 GM PKT PO SCH (22:00)
[2016-04-08] VITALS (24 sets, daily range): BP systolic 91–129; RESP 16–40; TEMP 97.1–98.3
[2016-04-08] MEDS ORDERED: MISSING DOSE XX ONE ×2 (00:20)
[2016-04-08] MEDS: VALPROATE IV SCH ×4 (00:51→16:18)
[2016-04-08] MEDS: SODIUM CHLORIDE 0.9% IV SCH ×4 (00:51→16:18)
[2016-04-08] MEDS: SODIUM CHLORIDE IV SCH ×4 (00:59→19:55)
[2016-04-08] MEDS: FOSPHENYTOIN PE IV SCH ×4 (00:59→19:55)
[2016-04-08] MEDS: SODIUM CHLORIDE 0.9% FLUSH BAG 500 ML IV SCH ×3 (05:32→05:51)
[2016-04-08] MEDS: NEB-BROVANA 15 MCG/2 ML INH SCH ×2 (07:08→17:18)
[2016-04-08] MEDS: NEB-NACL 3% 4 ML NEBU INH SCH ×4 (07:08→22:10)
[2016-04-08] MEDS: DUONEB INH SCH ×4 (07:08→22:10)
[2016-04-08] MEDS: NEB-BUDESONIDE 0.5 MG INH SCH ×2 (07:08→17:18)
[2016-04-08] MEDS: LINEZOLID 600 MG/300 ML 300 ML IV SCH ×2 (07:54→20:52)
[2016-04-08] MEDS: SALINE FLUSH 10 ML FLUSH SCH ×2 (07:55→19:58)
[2016-04-08] MEDS: VANCOMYCIN SUSP 250 MG/5 ML UDC PO SCH ×4 (07:56→21:38)
[2016-04-08] MEDS: CHOLESTYRAMINE LIGHT 4 GM PKT PO SCH ×2 (07:56→21:38)
[2016-04-08] MEDS: ASPIRIN 81 MG CHEW TAB PO SCH (07:57)
[2016-04-08] MEDS: SACCHA BOULARDII 250MG CAP PO SCH ×2 (07:59→20:35)
[2016-04-08] MEDS: LACOSAMIDE 200 MG TAB PO SCH ×2 (08:02→20:42)
[2016-04-08] MEDS: MICONAZOLE 2% PWD TOPICAL SCH ×2 (08:03→20:34)
[2016-04-08] MEDS: ARTIFICIAL TEARS OINT EYE EACH SCH ×4 (08:05→20:33)
[2016-04-08] MEDS: FAMOTIDINE 20 MG INJ IV SCH (08:14)
[2016-04-08] MEDS: DIVALPROEX SOD 125 MG CAP PO SCH ×2 (11:30→20:33)
[2016-04-08] MEDS: MONTELUKAST 10 MG TAB PO SCH (20:34)
[2016-04-08] MEDS: PHENYTOIN 100 MG CAP PO SCH (20:34)
[2016-04-09] VITALS (24 sets, daily range): BP systolic 90–130; RESP 14–31; TEMP 97.2–98.6
[2016-04-09] MEDS: VALPROATE IV SCH ×4 (00:57→18:09)
[2016-04-09] MEDS: SODIUM CHLORIDE 0.9% IV SCH ×4 (00:57→18:09)
[2016-04-09] MEDS: FOSPHENYTOIN PE IV SCH ×4 (02:41→20:15)
[2016-04-09] MEDS: SODIUM CHLORIDE IV SCH ×4 (02:41→20:15)
[2016-04-09] MEDS: NEB-NACL 3% 4 ML NEBU INH SCH ×4 (06:00→23:50)
[2016-04-09] MEDS: SODIUM CHLORIDE 0.9% FLUSH BAG 500 ML IV SCH ×3 (06:00→06:44)
[2016-04-09] MEDS: DUONEB INH SCH ×4 (06:01→23:50)
[2016-04-09] MEDS: NEB-BUDESONIDE 0.5 MG INH SCH ×2 (06:01→17:00)
[2016-04-09] MEDS: NEB-BROVANA 15 MCG/2 ML INH SCH ×2 (06:01→16:59)
[2016-04-09] MEDS: LINEZOLID 600 MG/300 ML 300 ML IV SCH ×2 (08:00→08:51)
[2016-04-09] MEDS ORDERED: MISSING DOSE XX ONE (08:05)
[2016-04-09] MEDS: ASPIRIN 81 MG CHEW TAB PO SCH (08:39)
[2016-04-09] MEDS: LACOSAMIDE 200 MG TAB PO SCH ×2 (08:40→20:16)
[2016-04-09] MEDS: DIVALPROEX SOD 125 MG CAP PO SCH ×2 (08:40→20:16)
[2016-04-09] MEDS: SACCHA BOULARDII 250MG CAP PO SCH ×2 (08:40→20:16)
[2016-04-09] MEDS: CHOLESTYRAMINE LIGHT 4 GM PKT PO SCH ×3 (08:42→23:19)
[2016-04-09] MEDS: VANCOMYCIN SUSP 250 MG/5 ML UDC PO SCH ×4 (08:42→20:16)
[2016-04-09] MEDS: SALINE FLUSH 10 ML FLUSH SCH ×2 (08:51→20:15)
[2016-04-09] MEDS: ARTIFICIAL TEARS OINT EYE EACH SCH (08:51)
[2016-04-09] MEDS: MICONAZOLE 2% PWD TOPICAL SCH ×2 (08:52→20:17)
[2016-04-09] MEDS: PHENYTOIN 100 MG CAP PO SCH (20:16)
[2016-04-09] MEDS: MONTELUKAST 10 MG TAB PO SCH (20:16)
[2016-04-10] VITALS (24 sets, daily range): BP systolic 101–133; RESP 18–34; TEMP 96.5–98.4
[2016-04-10] MEDS: SODIUM CHLORIDE 0.9% FLUSH BAG 500 ML IV SCH ×3 (06:00→06:24)
[2016-04-10] MEDS: NEB-NACL 3% 4 ML NEBU INH SCH ×3 (06:25→18:39)
[2016-04-10] MEDS: NEB-BUDESONIDE 0.5 MG INH SCH ×2 (06:25→18:39)
[2016-04-10] MEDS: DUONEB INH SCH ×3 (06:25→18:39)
[2016-04-10] MEDS: NEB-BROVANA 15 MCG/2 ML INH SCH ×2 (06:25→18:39)
[2016-04-10] MEDS: SALINE FLUSH 10 ML FLUSH SCH ×2 (08:55→20:15)
[2016-04-10] MEDS: VANCOMYCIN SUSP 250 MG/5 ML UDC PO SCH ×4 (08:56→20:44)
[2016-04-10] MEDS: ASPIRIN 81 MG CHEW TAB PO SCH (08:56)
[2016-04-10] MEDS: DIVALPROEX SOD 125 MG CAP PO SCH ×2 (08:57→20:44)
[2016-04-10] MEDS: LACOSAMIDE 200 MG TAB PO SCH ×2 (08:58→20:45)
[2016-04-10] MEDS: SACCHA BOULARDII 250MG CAP PO SCH ×2 (08:58→20:45)
[2016-04-10] MEDS: CHOLESTYRAMINE LIGHT 4 GM PKT PO SCH ×2 (08:59→20:45)
[2016-04-10] MEDS: MICONAZOLE 2% PWD TOPICAL SCH ×2 (08:59→20:45)
[2016-04-10] MEDS: MONTELUKAST 10 MG TAB PO SCH (20:45)
[2016-04-10] MEDS: PHENYTOIN 100 MG CAP PO SCH (20:45)
[2016-04-10] MEDS ORDERED: MISSING DOSE XX ONE (21:30)
[2016-04-11] VITALS: BP_SYST 123; RESP 24; TEMP 97.9
[2016-04-11] MEDS: NEB-NACL 3% 4 ML NEBU INH SCH ×5 (00:04→23:19)
[2016-04-11] MEDS: DUONEB INH SCH ×5 (00:04→23:19)
[2016-04-11] MEDS: NEB-BROVANA 15 MCG/2 ML INH SCH ×2 (05:12→19:02)
[2016-04-11] MEDS: NEB-BUDESONIDE 0.5 MG INH SCH ×2 (05:13→19:02)
[2016-04-11] MEDS: SODIUM CHLORIDE 0.9% FLUSH BAG 500 ML IV SCH ×3 (05:38)
[2016-04-11 08:39] VITALS: BP_SYST 120; RESP 24; TEMP 97.1
[2016-04-11] MEDS: ASPIRIN 81 MG CHEW TAB PO SCH (09:33)
[2016-04-11] MEDS: DIVALPROEX SOD 125 MG CAP PO SCH ×2 (09:33→20:54)
[2016-04-11] MEDS: SALINE FLUSH 10 ML FLUSH SCH ×2 (09:33→20:54)
[2016-04-11] MEDS: SACCHA BOULARDII 250MG CAP PO SCH ×2 (09:33→20:55)
[2016-04-11] MEDS: LACOSAMIDE 200 MG TAB PO SCH ×2 (09:33→20:55)
[2016-04-11] MEDS: MICONAZOLE 2% PWD TOPICAL SCH ×2 (09:36→20:55)
[2016-04-11] MEDS ORDERED: MISSING DOSE XX ONE (10:20)
[2016-04-11] MEDS: VANCOMYCIN SUSP 250 MG/5 ML UDC PO SCH ×4 (10:47→20:54)
[2016-04-11] MEDS: CHOLESTYRAMINE LIGHT 4 GM PKT PO SCH ×2 (10:47→20:55)
[2016-04-11 12:42] VITALS: BP_SYST 135; RESP 24; TEMP 97.5
[2016-04-11 15:05] VITALS: BP_SYST 135; RESP 24; TEMP 97.6
[2016-04-11 19:59] VITALS: BP_SYST 132; RESP 20; TEMP 97.3
[2016-04-11] MEDS: PHENYTOIN 100 MG CAP PO SCH (20:54)
[2016-04-11] MEDS: MONTELUKAST 10 MG TAB PO SCH (20:55)
[2016-04-11 23:16] VITALS: BP_SYST 138; RESP 18; TEMP 97.7
[2016-04-12] VITALS (45 sets, daily range): BP systolic 49–138; RESP 18–37; TEMP 97.3–98.2
[2016-04-12] MEDS: SODIUM CHLORIDE 0.9% FLUSH BAG 500 ML IV SCH ×3 (05:10)
[2016-04-12] MEDS: DUONEB INH SCH ×4 (06:17→22:24)
[2016-04-12] MEDS: NEB-NACL 3% 4 ML NEBU INH SCH ×4 (06:17→22:24)
[2016-04-12] MEDS: NEB-BROVANA 15 MCG/2 ML INH SCH ×2 (06:17→17:00)
[2016-04-12] MEDS: NEB-BUDESONIDE 0.5 MG INH SCH ×2 (06:17→17:00)
[2016-04-12] MEDS: SALINE FLUSH 10 ML FLUSH SCH ×2 (09:42→22:48)
[2016-04-12] MEDS: SACCHA BOULARDII 250MG CAP PO SCH ×2 (09:43→21:00)
[2016-04-12] MEDS: DIVALPROEX SOD 125 MG CAP PO SCH (09:43)
[2016-04-12] MEDS: VANCOMYCIN SUSP 250 MG/5 ML UDC PO SCH ×4 (09:43→21:00)
[2016-04-12] MEDS: ASPIRIN 81 MG CHEW TAB PO SCH (09:43)
[2016-04-12] MEDS: LACOSAMIDE 200 MG TAB PO SCH (09:43)
[2016-04-12] MEDS: CHOLESTYRAMINE LIGHT 4 GM PKT PO SCH ×2 (09:44→22:00)
[2016-04-12] MEDS: MICONAZOLE 2% PWD TOPICAL SCH ×2 (09:44→22:54)
[2016-04-12] MEDS ORDERED: ACETAMINOPHEN 325 MG TAB PO PRN (12:25)
[2016-04-12] MEDS ORDERED: SODIUM CHLORIDE 0.9% 500 ML IV ONE (13:20)
[2016-04-12] MEDS ORDERED: DEXTROSE 5% SALINE 0.9% 1,000 ML IV SCH (13:20)
[2016-04-12] MEDS ORDERED: DEXTROSE 50% SYRINGE 50 ML IV PRN (15:10)
[2016-04-12] MEDS ORDERED: GLUCAGON 1 MG VIAL IM PRN (15:10)
[2016-04-12] MEDS ORDERED: PHARMACY TO DOSE ZOSYN IV SCH (15:55)
[2016-04-12] MEDS ORDERED: PHARMACY TO DOSE VANCOMYCIN IV SCH (15:55)
[2016-04-12] MEDS: VANCOMYCIN 1,000 MG in SODIUM CHLORIDE 0.9% 250 ML IV SCH (17:00)
[2016-04-12] MEDS: PIPERACIL/TAZO 4.5GM/100ML 100 ML IV SCH (18:00)
[2016-04-12] MEDS ORDERED: NOREPINEPHRINE 16 MG in DEXTROSE 5% 234 ML IV SCH (19:25)
[2016-04-12] MEDS ORDERED: PROPOFOL 100 ML 100 ML IV ONE (19:52)
[2016-04-12] MEDS ORDERED: VASOPRESSIN 40 UNITS in SODIUM CHLORIDE 0.9% 38 ML IV SCH (20:40)
[2016-04-12] MEDS: MONTELUKAST 10 MG TAB PO SCH (21:00)
[2016-04-12] MEDS ORDERED: SUCCINYLCHOLINE 20 MG/ML VL ONE (21:54)
[2016-04-12] MEDS: PHENYTOIN INJ 300 MG in SODIUM CHLORIDE 0.9% 50 ML IV SCH (22:49)
[2016-04-13] VITALS (54 sets, daily range): BP systolic 81–152; RESP 15–29; TEMP 97.2–99.2
[2016-04-13] MEDS: LACOSAMIDE 200 MG in SODIUM CHLORIDE 0.9% 50 ML IV SCH ×3 (00:17→21:23)
[2016-04-13] MEDS: VALPROATE 250 MG in SODIUM CHLORIDE 0.9% 50 ML IV SCH ×4 (00:41→18:03)
[2016-04-13] MEDS: PIPERACIL/TAZO 4.5GM/100ML 100 ML IV SCH ×4 (01:20→17:12)
[2016-04-13] MEDS ORDERED: MISSING DOSE XX ONE ×3 (05:20→08:30)
[2016-04-13] MEDS: VANCOMYCIN 1,000 MG in SODIUM CHLORIDE 0.9% 250 ML IV SCH ×2 (05:30→17:08)
[2016-04-13] MEDS: SODIUM CHLORIDE 0.9% FLUSH BAG 500 ML IV SCH ×2 (05:52→10:20)
[2016-04-13] MEDS: DUONEB INH SCH ×4 (06:35→22:53)
[2016-04-13] MEDS: NEB-BROVANA 15 MCG/2 ML INH SCH ×2 (06:35→18:26)
[2016-04-13] MEDS: NEB-NACL 3% 4 ML NEBU INH SCH ×4 (06:35→22:53)
[2016-04-13] MEDS: NEB-BUDESONIDE 0.5 MG INH SCH ×2 (06:35→18:26)
[2016-04-13] MEDS: MICONAZOLE 2% PWD TOPICAL SCH ×2 (08:19→20:11)
[2016-04-13] MEDS: ASPIRIN 81 MG CHEW TAB PO SCH (08:20)
[2016-04-13] MEDS: SACCHA BOULARDII 250MG CAP PO SCH ×2 (08:20→20:09)
[2016-04-13] MEDS: SALINE FLUSH 10 ML FLUSH SCH ×2 (08:22→20:11)
[2016-04-13] MEDS: VANCOMYCIN SUSP 250 MG/5 ML UDC PO SCH (09:00)
[2016-04-13] MEDS: MAGNESIUM SULF 1 GM/100 ML 100 ML IV SCH ×3 (10:12→14:15)
[2016-04-13] MEDS: CHOLESTYRAMINE LIGHT 4 GM PKT PO SCH ×2 (10:13→22:21)
[2016-04-13] MEDS: SODIUM CHLORIDE 0.9% IV SCH ×2 (12:03→15:57)
[2016-04-13] MEDS: METRONIDAZOLE IV SCH ×2 (12:03→15:57)
[2016-04-13] MEDS: CHLORHEXIDINE 0.12% ORAL CARE FOR VENT PATIENTS 15 ML SWAB SCH (12:06)
[2016-04-13] MEDS: MONTELUKAST 10 MG TAB PO SCH (20:09)
[2016-04-13] MEDS: PHENYTOIN INJ 300 MG in SODIUM CHLORIDE 0.9% 50 ML IV SCH (20:09)
[2016-04-14] VITALS (39 sets, daily range): BP systolic 92–141; RESP 19–39; TEMP 98.7–100.2
[2016-04-14] MEDS: METRONIDAZOLE 250 MG 500 MG in SODIUM CHLORIDE 0.9% 100 ML IV SCH ×4 (00:24→23:27)
[2016-04-14] MEDS: PIPERACIL/TAZO 4.5GM/100ML 100 ML IV SCH ×5 (00:24→23:27)
[2016-04-14] MEDS: VALPROATE 250 MG in SODIUM CHLORIDE 0.9% 50 ML IV SCH ×4 (00:24→18:10)
[2016-04-14] MEDS: CHLORHEXIDINE 0.12% ORAL CARE FOR VENT PATIENTS 15 ML SWAB SCH ×2 (00:25→12:54)
[2016-04-14] MEDS: VANCOMYCIN 1,000 MG in SODIUM CHLORIDE 0.9% 250 ML IV SCH (04:37)
[2016-04-14] MEDS: DUONEB INH SCH ×4 (06:45→22:45)
[2016-04-14] MEDS: NEB-BUDESONIDE 0.5 MG INH SCH ×2 (06:45→16:25)
[2016-04-14] MEDS: NEB-NACL 3% 4 ML NEBU INH SCH ×4 (06:45→22:45)
[2016-04-14] MEDS: NEB-BROVANA 15 MCG/2 ML INH SCH ×2 (06:45→16:25)
[2016-04-14] MEDS ORDERED: POTASSIUM PHOSPHATE 45 MMOL in SODIUM CHLORIDE 0.9% 500 ML IV ONE (07:10)
[2016-04-14] MEDS: SALINE FLUSH 10 ML FLUSH SCH ×2 (07:51→21:24)
[2016-04-14] MEDS: SACCHA BOULARDII 250MG CAP PO SCH (07:52)
[2016-04-14] MEDS: ASPIRIN 81 MG CHEW TAB PO SCH (07:52)
[2016-04-14] MEDS: MICONAZOLE 2% PWD TOPICAL SCH ×2 (07:53→21:25)
[2016-04-14] MEDS ORDERED: MISSING DOSE XX ONE (10:15)
[2016-04-14] MEDS: PANTOPRAZOLE 40 MG VIAL IV SCH (10:16)
[2016-04-14] MEDS: CHOLESTYRAMINE LIGHT 4 GM PKT PO SCH (10:17)
[2016-04-14] MEDS: LINEZOLID 600 MG/300 ML 300 ML IV SCH ×2 (10:17→21:18)
[2016-04-14] MEDS: LACOSAMIDE 200 MG in SODIUM CHLORIDE 0.9% 50 ML IV SCH (12:02)
[2016-04-14] MEDS: LACOSAMIDE 50 MG TABLET NG SCH (21:22)
[2016-04-14] MEDS: PHENYTOIN INJ 300 MG in SODIUM CHLORIDE 0.9% 50 ML IV SCH (21:22)
[2016-04-14] MEDS ORDERED: DIPHENOXYLATE NG PRN (21:40)
[2016-04-14] MEDS ORDERED: ATROP NG PRN (21:40)
[2016-04-14] MEDS ORDERED: ACETAMINOPHEN 650 MG/20.3 ML UDC NG PRN (21:40)
[2016-04-14] MEDS: CHOLESTYRAMINE LIGHT 4 GM PKT NG SCH (23:27)
[2016-04-15] VITALS (32 sets, daily range): BP systolic 83–136; RESP 12–39; TEMP 96.8–99.2
[2016-04-15] MEDS: CHLORHEXIDINE 0.12% ORAL CARE FOR VENT PATIENTS 15 ML SWAB SCH ×2 (00:32→11:18)
[2016-04-15] MEDS: VALPROATE 250 MG in SODIUM CHLORIDE 0.9% 50 ML IV SCH ×4 (00:32→17:06)
[2016-04-15] MEDS: PIPERACIL/TAZO 4.5GM/100ML 100 ML IV SCH ×3 (05:59→17:06)
[2016-04-15] MEDS: SODIUM CHLORIDE 0.9% FLUSH BAG 500 ML IV SCH (06:00)
[2016-04-15] MEDS: NEB-BROVANA 15 MCG/2 ML INH SCH ×2 (06:09→18:23)
[2016-04-15] MEDS: NEB-BUDESONIDE 0.5 MG INH SCH ×2 (06:09→18:23)
[2016-04-15] MEDS: NEB-NACL 3% 4 ML NEBU INH SCH ×4 (06:09→22:56)
[2016-04-15] MEDS: DUONEB INH SCH ×4 (06:10→22:56)
[2016-04-15] MEDS: LINEZOLID 600 MG/300 ML 300 ML IV SCH ×2 (08:20→20:00)
[2016-04-15] MEDS: MAGNESIUM SULF 1 GM/100 ML 100 ML IV SCH ×3 (08:20→10:35)
[2016-04-15] MEDS: SALINE FLUSH 10 ML FLUSH SCH ×2 (08:24→20:00)
[2016-04-15] MEDS ORDERED: Furosemide 40 MG/4 ML VIAL IV ONE (09:15)
[2016-04-15] MEDS: PANTOPRAZOLE 40 MG VIAL IV SCH (09:19)
[2016-04-15] MEDS: ASPIRIN 81 MG CHEW TAB NG SCH (09:23)
[2016-04-15] MEDS: LACOSAMIDE 50 MG TABLET NG SCH ×2 (09:24→21:06)
[2016-04-15] MEDS: SACCHA BOULARDII 250MG CAP NG SCH ×2 (09:24→21:07)
[2016-04-15] MEDS: MICONAZOLE 2% PWD TOPICAL SCH ×2 (09:25→21:08)
[2016-04-15] MEDS: CHOLESTYRAMINE LIGHT 4 GM PKT NG SCH ×2 (09:25→22:00)
[2016-04-15] MEDS: POTASSIUM CHLORIDE PREMIX 50 ML IV SCH ×4 (10:33→14:39)
[2016-04-15] MEDS: VANCOMYCIN SUSP 250 MG/5 ML UDC PO SCH ×3 (12:25→21:07)
[2016-04-15] MEDS: PHENYTOIN INJ 300 MG in SODIUM CHLORIDE 0.9% 50 ML IV SCH (21:07)
[2016-04-15] MEDS: MONTELUKAST 10 MG TAB NG SCH (21:07)
[2016-04-16] VITALS (30 sets, daily range): BP systolic 94–144; RESP 14–38; TEMP 97.4–97.6
[2016-04-16] MEDS: VALPROATE 250 MG in SODIUM CHLORIDE 0.9% 50 ML IV SCH ×6 (06:27→23:06)
[2016-04-16] MEDS: PIPERACIL/TAZO 4.5GM/100ML 100 ML IV SCH ×5 (06:27→23:06)
[2016-04-16] MEDS: SODIUM CHLORIDE 0.9% FLUSH BAG 500 ML IV SCH (06:27)
[2016-04-16] MEDS: NEB-NACL 3% 4 ML NEBU INH SCH ×3 (07:02→19:50)
[2016-04-16] MEDS: NEB-BROVANA 15 MCG/2 ML INH SCH ×2 (07:02→19:50)
[2016-04-16] MEDS: NEB-BUDESONIDE 0.5 MG INH SCH ×2 (07:02→19:50)
[2016-04-16] MEDS: DUONEB INH SCH ×3 (07:02→19:50)
[2016-04-16] MEDS: SALINE FLUSH 10 ML FLUSH SCH ×2 (07:54→20:20)
[2016-04-16] MEDS: LINEZOLID 600 MG/300 ML 300 ML IV SCH (07:55)
[2016-04-16] MEDS: PANTOPRAZOLE 40 MG VIAL IV SCH (09:25)
[2016-04-16] MEDS: ASPIRIN 81 MG CHEW TAB NG SCH (09:27)
[2016-04-16] MEDS: Furosemide 40 MG/4 ML VIAL IV SCH ×2 (09:27→16:20)
[2016-04-16] MEDS: SACCHA BOULARDII 250MG CAP NG SCH ×2 (09:28→20:21)
[2016-04-16] MEDS: LACOSAMIDE 50 MG TABLET NG SCH ×2 (09:28→20:21)
[2016-04-16] MEDS: CHOLESTYRAMINE LIGHT 4 GM PKT NG SCH ×2 (09:28→20:21)
[2016-04-16] MEDS: VANCOMYCIN SUSP 250 MG/5 ML UDC PO SCH ×4 (09:29→21:05)
[2016-04-16] MEDS: MICONAZOLE 2% PWD TOPICAL SCH ×2 (09:29→20:21)
[2016-04-16] MEDS: CHLORHEXIDINE 0.12% ORAL CARE FOR VENT PATIENTS 15 ML SWAB SCH ×2 (12:26)
[2016-04-16] MEDS: POTASSIUM CHLORIDE PREMIX 50 ML IV SCH ×2 (16:19→17:51)
[2016-04-16] MEDS: PHENYTOIN INJ 300 MG in SODIUM CHLORIDE 0.9% 50 ML IV SCH (20:20)
[2016-04-16] MEDS: MONTELUKAST 10 MG TAB NG SCH (20:21)
[2016-04-17] VITALS (37 sets, daily range): BP systolic 95–147; RESP 13–36; TEMP 97.4–99.1
[2016-04-17] MEDS: NEB-NACL 3% 4 ML NEBU INH SCH ×5 (00:02→22:24)
[2016-04-17] MEDS: DUONEB INH SCH ×5 (00:02→22:24)
[2016-04-17] MEDS: NEB-BUDESONIDE 0.5 MG INH SCH ×2 (06:13→18:16)
[2016-04-17] MEDS: NEB-BROVANA 15 MCG/2 ML INH SCH ×2 (06:13→18:16)
[2016-04-17] MEDS: VALPROATE 250 MG in SODIUM CHLORIDE 0.9% 50 ML IV SCH ×4 (06:29→23:41)
[2016-04-17] MEDS: CHLORHEXIDINE 0.12% ORAL CARE FOR VENT PATIENTS 15 ML SWAB SCH ×3 (06:29→23:42)
[2016-04-17] MEDS: SODIUM CHLORIDE 0.9% FLUSH BAG 500 ML IV SCH (06:30)
[2016-04-17] MEDS ORDERED: POTASSIUM PHOSPHATE 45 MMOL in SODIUM CHLORIDE 0.9% 500 ML IV ONE (06:30)
[2016-04-17] MEDS: PIPERACIL/TAZO 4.5GM/100ML 100 ML IV SCH ×4 (06:30→23:45)
[2016-04-17] MEDS: PANTOPRAZOLE 40 MG TAB PO SCH (06:31)
[2016-04-17] MEDS: MAGNESIUM SULF 1 GM/100 ML 100 ML IV SCH ×4 (08:06→15:32)
[2016-04-17] MEDS: SALINE FLUSH 10 ML FLUSH SCH ×2 (08:07→20:10)
[2016-04-17] MEDS: Furosemide 20 MG/2 ML VIAL IV SCH ×3 (08:07→23:47)
[2016-04-17] MEDS: PANTOPRAZOLE 40 MG VIAL IV SCH (08:18)
[2016-04-17] MEDS: ASPIRIN 81 MG CHEW TAB NG SCH (09:31)
[2016-04-17] MEDS: SACCHA BOULARDII 250MG CAP NG SCH ×2 (09:31→20:11)
[2016-04-17] MEDS: VANCOMYCIN SUSP 250 MG/5 ML UDC PO SCH ×4 (09:32→20:11)
[2016-04-17] MEDS: LACOSAMIDE 50 MG TABLET NG SCH ×2 (09:32→20:11)
[2016-04-17] MEDS: CHOLESTYRAMINE LIGHT 4 GM PKT NG SCH ×2 (09:33→23:39)
[2016-04-17] MEDS: MICONAZOLE 2% PWD TOPICAL SCH ×2 (09:34→20:12)
[2016-04-17] MEDS: IRON SUCROSE COMPLEX 400 MG in SODIUM CHLORIDE 0.9% 250 ML IV SCH (20:09)
[2016-04-17] MEDS: PHENYTOIN INJ 300 MG in SODIUM CHLORIDE 0.9% 50 ML IV SCH (20:10)
[2016-04-17] MEDS: MONTELUKAST 10 MG TAB NG SCH (20:11)
[2016-04-18] VITALS (35 sets, daily range): BP systolic 83–139; RESP 9–32; TEMP 97.4–98.6
[2016-04-18] MEDS: SODIUM CHLORIDE 0.9% FLUSH BAG 500 ML IV SCH (05:42)
[2016-04-18] MEDS: VALPROATE 250 MG in SODIUM CHLORIDE 0.9% 50 ML IV SCH ×3 (05:42→18:42)
[2016-04-18] MEDS: PIPERACIL/TAZO 4.5GM/100ML 100 ML IV SCH ×3 (05:43→18:42)
[2016-04-18] MEDS: DUONEB INH SCH ×4 (06:45→23:00)
[2016-04-18] MEDS: NEB-BROVANA 15 MCG/2 ML INH SCH ×2 (06:45→18:58)
[2016-04-18] MEDS: NEB-BUDESONIDE 0.5 MG INH SCH ×2 (06:45→18:58)
[2016-04-18] MEDS: NEB-NACL 3% 4 ML NEBU INH SCH ×3 (06:46→18:58)
[2016-04-18] MEDS: PANTOPRAZOLE 40 MG TAB PO SCH (06:56)
[2016-04-18] MEDS: Furosemide 20 MG/2 ML VIAL IV SCH ×2 (08:13→22:08)
[2016-04-18] MEDS: SALINE FLUSH 10 ML FLUSH SCH ×2 (08:13→20:00)
[2016-04-18] MEDS: LACOSAMIDE 50 MG TABLET NG SCH ×2 (08:14→22:08)
[2016-04-18] MEDS: IRON SUCROSE COMPLEX 400 MG in SODIUM CHLORIDE 0.9% 250 ML IV SCH (08:14)
[2016-04-18] MEDS: SACCHA BOULARDII 250MG CAP NG SCH ×2 (08:14→22:09)
[2016-04-18] MEDS: ASPIRIN 81 MG CHEW TAB NG SCH (08:14)
[2016-04-18] MEDS: VANCOMYCIN SUSP 250 MG/5 ML UDC PO SCH ×4 (08:15→22:08)
[2016-04-18] MEDS: MICONAZOLE 2% PWD TOPICAL SCH ×2 (08:15→22:10)
[2016-04-18] MEDS ORDERED: MISSING DOSE XX ONE (12:10)
[2016-04-18] MEDS: CHOLESTYRAMINE LIGHT 4 GM PKT NG SCH ×2 (12:20→22:10)
[2016-04-18] MEDS: CHLORHEXIDINE 0.12% ORAL CARE FOR VENT PATIENTS 15 ML SWAB SCH (12:22)
[2016-04-18] MEDS: MONTELUKAST 10 MG TAB NG SCH (22:08)
[2016-04-18] MEDS: PHENYTOIN INJ 300 MG in SODIUM CHLORIDE 0.9% 50 ML IV SCH (22:09)
[2016-04-19] VITALS (37 sets, daily range): BP systolic 91–143; RESP 9–31; TEMP 96.5–97.9
[2016-04-19] MEDS: CHLORHEXIDINE 0.12% ORAL CARE FOR VENT PATIENTS 15 ML SWAB SCH ×2 (00:19→14:16)
[2016-04-19] MEDS: VALPROATE 250 MG in SODIUM CHLORIDE 0.9% 50 ML IV SCH ×4 (00:20→16:59)
[2016-04-19] MEDS: PIPERACIL/TAZO 4.5GM/100ML 100 ML IV SCH ×3 (00:23→14:14)
[2016-04-19] MEDS: NEB-NACL 3% 4 ML NEBU INH SCH ×5 (00:30→22:02)
[2016-04-19] MEDS: NEB-BUDESONIDE 0.5 MG INH SCH ×2 (06:11→19:02)
[2016-04-19] MEDS: NEB-BROVANA 15 MCG/2 ML INH SCH ×2 (06:11→19:02)
[2016-04-19] MEDS: DUONEB INH SCH ×4 (06:11→22:02)
[2016-04-19] MEDS: SODIUM CHLORIDE 0.9% FLUSH BAG 500 ML IV SCH (06:37)
[2016-04-19] MEDS: LANSOPRAZOLE 30 MG SOLUTAB NG SCH (06:39)
[2016-04-19] MEDS: Furosemide 20 MG/2 ML VIAL IV SCH (08:00)
[2016-04-19] MEDS: SALINE FLUSH 10 ML FLUSH SCH ×2 (09:30→20:30)
[2016-04-19] MEDS: SACCHA BOULARDII 250MG CAP NG SCH ×2 (09:31→20:30)
[2016-04-19] MEDS: ASPIRIN 81 MG CHEW TAB NG SCH (09:31)
[2016-04-19] MEDS: MICONAZOLE 2% PWD TOPICAL SCH ×2 (09:32→22:11)
[2016-04-19] MEDS: VANCOMYCIN SUSP 250 MG/5 ML UDC PO SCH ×4 (09:32→20:29)
[2016-04-19] MEDS: LACOSAMIDE 50 MG TABLET NG SCH ×2 (09:32→20:30)
[2016-04-19] MEDS: CHOLESTYRAMINE LIGHT 4 GM PKT NG SCH ×2 (11:14→22:11)
[2016-04-19] MEDS: MONTELUKAST 10 MG TAB NG SCH (20:29)
[2016-04-19] MEDS: PHENYTOIN INJ 300 MG in SODIUM CHLORIDE 0.9% 50 ML IV SCH (20:30)
[2016-04-20] VITALS (35 sets, daily range): BP systolic 111–160; RESP 12–27; TEMP 96.9–100.6
[2016-04-20] MEDS: CHLORHEXIDINE 0.12% ORAL CARE FOR VENT PATIENTS 15 ML SWAB SCH ×2 (00:11→11:22)
[2016-04-20] MEDS: VALPROATE 250 MG in SODIUM CHLORIDE 0.9% 50 ML IV SCH ×4 (00:11→18:00)
[2016-04-20] MEDS: SODIUM CHLORIDE 0.9% FLUSH BAG 500 ML IV SCH (05:57)
[2016-04-20] MEDS ORDERED: SODIUM PHOSPHATE 30 MM in SODIUM CHLORIDE 0.9% 250 ML IV ONE (06:50)
[2016-04-20] MEDS ORDERED: MAGNESIUM SULF 1 GM/100 ML 100 ML IV ONE (06:50)
[2016-04-20] MEDS: NEB-BUDESONIDE 0.5 MG INH SCH ×2 (06:52→18:28)
[2016-04-20] MEDS: DUONEB INH SCH ×4 (06:52→22:29)
[2016-04-20] MEDS: NEB-BROVANA 15 MCG/2 ML INH SCH ×2 (06:52→18:27)
[2016-04-20] MEDS: NEB-NACL 3% 4 ML NEBU INH SCH ×4 (06:52→22:29)
[2016-04-20] MEDS: LANSOPRAZOLE 30 MG SOLUTAB NG SCH (07:00)
[2016-04-20] MEDS: MICONAZOLE 2% PWD TOPICAL SCH ×2 (08:17→21:37)
[2016-04-20] MEDS: SALINE FLUSH 10 ML FLUSH SCH ×2 (08:17→21:35)
[2016-04-20] MEDS ORDERED: MISSING DOSE XX ONE ×2 (08:40→13:10)
[2016-04-20] MEDS: Furosemide 20 MG/2 ML VIAL IV SCH ×2 (08:50→16:31)
[2016-04-20] MEDS: ASPIRIN 81 MG CHEW TAB NG SCH (08:51)
[2016-04-20] MEDS: SACCHA BOULARDII 250MG CAP NG SCH ×2 (08:51→21:34)
[2016-04-20] MEDS: VANCOMYCIN SUSP 250 MG/5 ML UDC PO SCH ×4 (08:51→21:34)
[2016-04-20] MEDS: LACOSAMIDE 50 MG TABLET NG SCH ×2 (09:09→21:34)
[2016-04-20] MEDS ORDERED: NEB-ALBUTEROL 2.5 MG/3 ML INH PRN (10:10)
[2016-04-20] MEDS: CHOLESTYRAMINE LIGHT 4 GM PKT NG SCH (11:22)
[2016-04-20] MEDS ORDERED: MORPHINE 4 MG/ML SYR IV PRN (19:35)
[2016-04-20] MEDS: MONTELUKAST 10 MG TAB NG SCH (21:33)
[2016-04-20] MEDS: PHENYTOIN INJ 300 MG in SODIUM CHLORIDE 0.9% 50 ML IV SCH (21:34)
[2016-04-21] VITALS (30 sets, daily range): BP systolic 0–145; RESP 0–46; TEMP 97.7–98.9
[2016-04-21] MEDS: CHLORHEXIDINE 0.12% ORAL CARE FOR VENT PATIENTS 15 ML SWAB SCH ×2 (00:09→12:47)
[2016-04-21] MEDS: CHOLESTYRAMINE LIGHT 4 GM PKT NG SCH ×2 (00:10→09:55)
[2016-04-21] MEDS: Furosemide 20 MG/2 ML VIAL IV SCH ×2 (00:10→08:16)
[2016-04-21] MEDS: VALPROATE 250 MG in SODIUM CHLORIDE 0.9% 50 ML IV SCH ×3 (00:15→12:47)
[2016-04-21] MEDS: SODIUM CHLORIDE 0.9% FLUSH BAG 500 ML IV SCH (05:46)
[2016-04-21] MEDS: LANSOPRAZOLE 30 MG SOLUTAB NG SCH (06:06)
[2016-04-21] MEDS: DUONEB INH SCH ×2 (06:46→14:15)
[2016-04-21] MEDS: NEB-NACL 3% 4 ML NEBU INH SCH ×2 (06:46→14:15)
[2016-04-21] MEDS: NEB-BUDESONIDE 0.5 MG INH SCH (06:46)
[2016-04-21] MEDS: NEB-BROVANA 15 MCG/2 ML INH SCH (06:46)
[2016-04-21] MEDS: SALINE FLUSH 10 ML FLUSH SCH (08:14)
[2016-04-21] MEDS: LACOSAMIDE 50 MG TABLET NG SCH (08:15)
[2016-04-21] MEDS: VANCOMYCIN SUSP 250 MG/5 ML UDC PO SCH ×2 (08:15→12:47)
[2016-04-21] MEDS: SACCHA BOULARDII 250MG CAP NG SCH (08:15)
[2016-04-21] MEDS: ASPIRIN 81 MG CHEW TAB NG SCH (08:15)
[2016-04-21] MEDS: MICONAZOLE 2% PWD TOPICAL SCH (08:23)
[2016-04-21] MEDS ORDERED: MISSING DOSE XX ONE (12:25)
[2016-04-21] MEDS ORDERED: LORAZEPAM 2 MG/ML VIAL IV PRN (14:05)
[2016-04-21] MEDS ORDERED: MORPHINE 2 MG/ML SYR IV PRN (14:05)
[2016-04-21] MEDS ORDERED: MORPHINE 4 MG/ML SYR IV PRN ×2 (14:15→14:20)
== END 2016-04-21 16:25 | disposition expired | DRG 64 ==
LOC: ENRESERVDT → ENRESERV → ENRESERVTM → ER 16:50 → EMR 20:16 → CCU 03-22 00:33 → 3NT 03-22 20:12 → ICU 03-24 16:40 → PCU 04-11 01:25 → ICU 04-12 19:39
PROVIDERS: ADMIT Internal Medicine; ATTEND Internal Medicine
PROC: 05H633Z Insertion of Infusion Device into Left Subclavian Vein, Percutaneous Approach (ICD-10-PCS; principal; 2016-03-24)
PROC: 5A1955Z Respiratory Ventilation, Greater than 96 Consecutive Hours (ICD-10-PCS; 2016-03-24)
PROC: 0BH17EZ Insertion of Endotracheal Airway into Trachea, Via Natural or Artificial Opening (ICD-10-PCS; 2016-03-24)
PROC: 009U3ZX Drainage of Spinal Canal, Percutaneous Approach, Diagnostic (ICD-10-PCS; 2016-03-26)
DX: I63.8 Other cerebral infarction (principal); J96.01 Acute respiratory failure with hypoxia; R57.8 Other shock; N17.9 Acute kidney failure, unspecified; J15.0 Pneumonia due to Klebsiella pneumoniae; J15.212 Pneumonia due to Methicillin resistant Staphylococcus aureus; E46 Unspecified protein-calorie malnutrition; A04.7 Enterocolitis due to Clostridium difficile; G40.409 Other generalized epilepsy and epileptic syndromes, not intractable, without status epilepticus; G40.101 Localization-related (focal) (partial) symptomatic epilepsy and epileptic syndromes with simple partial seizures, not intractable, with status epilepticus; J98.11 Atelectasis; E87.2 Acidosis; Z68.1 Body mass index [BMI] 19.9 or less, adult; I10 Essential (primary) hypertension; E78.5 Hyperlipidemia, unspecified; Z79.82 Long term (current) use of aspirin; Z79.51 Long term (current) use of inhaled steroids; F41.9 Anxiety disorder, unspecified; F32.9 Major depressive disorder, single episode, unspecified; K21.9 Gastro-esophageal reflux disease without esophagitis; Z90.49 Acquired absence of other specified parts of digestive tract; I25.10 Atherosclerotic heart disease of native coronary artery without angina pectoris; J44.9 Chronic obstructive pulmonary disease, unspecified; I48.91 Unspecified atrial fibrillation; E11.65 Type 2 diabetes mellitus with hyperglycemia; D72.829 Elevated white blood cell count, unspecified; E87.6 Hypokalemia; E83.42 Hypomagnesemia; E83.39 Other disorders of phosphorus metabolism; Y95 Nosocomial condition; D50.9 Iron deficiency anemia, unspecified; E83.51 Hypocalcemia; G72.9 Myopathy, unspecified; E53.8 Deficiency of other specified B group vitamins; R15.9 Full incontinence of feces; R53.1 Weakness; Z66 Do not resuscitate
CPT/HCPCS: 36415; 36558; 36569; 36600; 62270; 70450; 70496; 70498; 70551; 71010; 76937; 80047; 80048; 80053; 80069; 80076; 80185; 80202; 81001; 82040; 82042; 82274; 82438; 82553; 82565; 82607; 82728; 82746; 82784; 82803; 82945; 82947; 83018; 83540; 83605; 83615; 83735; 83873; 83883; 83916; 83921; 84100; 84156; 84157; 84165; 84166; 84439; 84443; 84466; 84484; 84520; 85007; 85014; 85025; 85027; 85046; 85384; 85610; 85730; 86038; 86335; 86592; 86618; 86694; 87040; 87071; 87077; 87088; 87102; 87116; 87186; 87205; 87206; 87327; 87493; 87530; 88271; 88275; 88291; 89051; 93005; 94002; 94003; 94640; 94799; 95819; 96365; 96366; 96374; 96375; 99232; 99233; 99291